=== PATIENT | male | born 1995 | race Two or more races ===

== ENCOUNTER 2025-03-03 11:02 | Outpatient (AMB) | payer OTHER, SELFPAY ==
--- NOTE | 2025-03-03 11:04 | A.OFFPC_ITS ---
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 Intake Note: New patient to establish care Automotive Designer Required: No Allergies No Known Allergies Allergy (Verified 03/03/25 11:14) Medication List - Last Reconciled 03/03/25 by RAE Valenzuela- omeprazole 10 mg PO DAILY Tobacco use date assessed: 03/03/25 Dental Screening Dental Screen Date: 03/03/25 Did you have a dental visit in the last 12 months?: Yes Did you have a dental problem in the last 6 months where you did not have access to dental care?: No Was dental information given to patient?: Patient has dentist HPI HPI Comments History of Present Illness Details 29 y/o M with GERD, ADHD, partial tear i n R common extensor 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 Health Maintenance Tdap declined Specialists: Physiatry tendonitis R elbow PT [facility] - vision issues at night; changes in vision, would like referral Here today to est care. Previous PCP: Dr Serrano, no records available, Skin: no issues or concerns - Past medical experiences include previ ously diagnosed GERD, managed with sparingly used omeprazole since experiencing improved symptom control. - He used Adderall briefly during a alicia od of academic need but has since ceased using it due to a lack of necessity. - Persistent elbow tendinitis led to an MRI, showing a partial tear in the common extensor tendon. He receives physical therapy and recently started peptide injections @ [facility] to avoid surgical intervention. - Experiencing mild symptoms in the neck and shoulder region possibly related to poor posture and aggravated by specific activities associated with gym workouts. - Previously endured a brief episode of ambiguous visceral pain, which resolved without needing continued investigation. Did have ED eval and tx for this. States no imaging done. - Background anxiety is a minor concern for the patient, with no treatment sought; it presents infrequently and is not debilitating. 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 - Exercise: Engages in gym activities re gularly - Lifestyle: Reports coordinated exercis es managed through physical therapy - Education: Returned to school for spec ific testing, at one point using Adderall for focus - Family Planning: Lives with a girlfrie nd, with whom he consults on health decisions - Social Support: Girlfriend?s father is a former physician providing informal health input Health Maintenance - Discussed and declined tetanus vaccina tion update; advised on accessibility at pharmacy if reconsidered - No recent labs, offered but deferred s creenings including diabetes, cholesterol, and liver screening - Referral to eye care for general visio n examination and cyst evaluation of upper eye lid on R - Encouraged to keep regular annual well ness visits Review of Systems - General: Denies surgery history except for dental procedures - Cardiovascular: Denies family history of diabetes - Gastrointestinal: Reports history of G ERD - Musculoskeletal: Reports elbow tendini tis, small partial tear in common extensor tendon, neck discomfort, numbness/tingling between shoulder blade and spine - Neurological: Denies history of severe neurologic events - Psychiatric: Reports history of mild a nxiety, denies depression - Respiratory: Denies respiratory issues - Skin: Denies any ongoing skin conditio ns - Visual: Reports slight vision problems at night, presence of a cyst - Genitourinary: Denies concerns regardi ng STDs, reports performing self- examinations Physical Exam General: Well developed, well nourished, in no acute distress. Appears stated age. Head: Normocephalic, atraumatic. Eyes: Pupils are equal, round and reactive to light and accommodation. Conjunctivae are clear. Vision grossly normal. Noted a small cyst on the inside of the right eyelid. Ears: TMs clear AU, EACS WNL Nose: Patent, without discharge. Neck: Supple, no adenopathy or thyromegaly. Unable to reproduce sx reported in HPI Breast: Edu on SBE Lungs: Clear to auscultation bilaterally. No rales, rhonchi or wheeze noted. Good air flow in all gray. Heart: Regular rate and rhythm. No murmurs, click, rubs or gallops are noted. Abdomen: Bowel sounds present in all quadrants. The abdomen is soft, nontender, with no masses or organomegaly noted. No hernias are noted. : Deferred. Reviewed BLAIR & recommendations Pulses: Peripheral pulses are equal and palpable bilaterally. Extremities: No clubbing, cyanosis nor edema is noted. Neurologic: Gait and station normal. Cranial Nerves 2-12 intact. Motor strength grossly symmetrical and intact. No sensory loss. Balance normal. Reports numbness and tingling between shoulder blade and spine when hunched over. Skin: No rashes, ulcers, or lesions noted. Turgor is good. Skin color is good. Hair and nails are without abnormalities. Psych: Normal eye contact, affect and mood appropriate, and normal interactions. Patient is alert and appropriate to context. Discussion Notes I engaged with the patient regarding his desire to establish care, emphasizing the significance of managing ongoing health concerns such as GERD and a partial elbow tendon tear. We reviewed his current treatment approach with on-demand omeprazole and new peptide injection therapy. I explained the potential benefits of continued physical therapy versus surgical options. In terms of health maintenance, we recommended obtaining a tetanus vaccine, readily available at local pharmacies, and detailed instructions for accessing the patient portal for streamlined communication. Additionally, I introduced the use of eye exams to investigate noted visual difficulties and a cyst in his eyelid. I advised him to annually attend wellness checks and consider lifestyle adjustments addressing anxiety. Lastly, I reaffirmed the need for quick accessibility to care through our walk-in services for situations requiring acute attention. Assessment and Plan 1. Gastroesophageal Reflux Disease (GERD ) The patient manages GERD symptoms using omeprazole on an as-needed basis. Continued monitoring and patient-led symptom management reduce the need for immediate change given effective current practices. 2. Partial tear of the common extensor t endon of the elbow Management of the elbow's tendon tear remains conservative, with the patient engaging in peptide therapy geared toward reducing inflammation. Regular physical therapy assists in maintaining function and strength, circumventing more invasive procedures. Patient Instructions - Use omeprazole as needed for GERD symp toms. - Continue physical therapy and peptide injections for elbow tendon management. - Keep up with exercises and stretches t o maintain posture for neck/shoulder discomfort. - Consider tetanus vaccination at a [facility] pharmacy if deemed necessary. - Visit the appointed eye doctor for a c heck-up. - Engage with the patient portal within 24 hours to activate it. - Return annually for wellness checks or sooner if conditions change. - Use our walk-in services in [facility] acute care is required. Consent Patient was informed and verbally consented to the use of an ambient scribe for clinic note documentation during this visit. An additional 30 minutes was spent addressing the problem(s) noted at todays visit. This includes time spent before the visit reviewing the chart, time spent during the visit, and time spent after the visit on documentation reviewing laboratory results, diagnostic imaging, medications, performing a medically necessary evaluation, counseling on diagnoses, care coordination, ordering appropriate tests, ordering appropriate medications, review of tests performed by other providers, reporting test results with the patient, communication with other healthcare providers. FORMERLY [facility], [facility] Social History (Updated 03/03/25 @ 11:[address]ados MA) Household Members: Significant Other and Other Household Members Other:: mother Both parents involved: No Caregiver staying overnight: No Housing: House Are you a primary career development coordinator to a significant other at home: No Do you presently have visiting nurse or other home services: No 75 years or older and lives alone: No Alcohol intake: current Alcohol intake frequency: a few times a week Patient Tobacco Use Status: Never used Tobacco e-Cigarette/Vaping Use: Never Used Second Hand Smoke Exposure: No service: No Current occupational status: employed 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 1. Little interest or pleasure in doing things: not at all 2. Feeling down, depressed, or hopeless: not at all 3. Trouble falling or staying asleep, or sleeping too much: not at all 4. Feeling tired or having little energy: not at all 5. Poor appetite or overeating: not at all 6. Feeling bad about yourself - or that you are a failure or have let yourself or your family down: not at all 7. Trouble concentrating on things, such as reading the newspaper or watching television: not at all 8. Moving or speaking so slowly that other people could have noticed. Or the opposite - being so fidgety or restless that you have been moving around a lot more than usual: not at all 9. Thoughts that you would be better off or of hurting yourself in some way: not at all Total score: 0 Depression Screening Interpretation: Negative Depression Screening Done: Yes 55732 - PHQ-9 Billing: Yes Source: Developed by Drs. Cong Hannah, Adam Rosa and colleagues, with an educational mavis from [facility]. Thrive Questionnaire Date Thrive assessed: 03/03/25 I am a: Patient What is your living situation today?: I have a steady place to live Within the past 12 months, did the food you bought not last and you didn't have the money to get more?: Never true Within the past 12 months, did you worry whether your food would run out before you got money to buy more?: Never true Do you have trouble paying for medicines?: No Do you have trouble getting transportation to medical appointments?: No Do you have trouble paying your heating and electricity bill?: No Do you have trouble taking care of your child, family member or friend?: No Do you have trouble with day-to-day activities such as bathing, preparing meals, shopping, managing finances, etc.?: No Are you currently unemployed and looking for a job?: No Are you interested in more education?: No Please select the resources that you would like help with: None Currently or been in a relationship where the following occur: No concerns reported THRIVE Score: 0 AUDIT C Alcohol Use Questionnaire (AUDIT-C) 1. How often do you have a drink containing alcohol?: 2-4 times a month 2. How many drinks containing alcohol do you have on a typical day when you are drinking?: 5 or 6 3. How often do you have six or more drinks on one occasion?: Weekly Total Score: 7 Score Reviewed/Action Taken: Yes ALMA-7 AMB Questionnaire ALMA-7 Date ALMA - 7 assessed: 03/03/25 Feeling nervous, anxious, or on edge: 1 = Several days Not being able to stop or control worryin = Several days Worrying too much about different things: 1 = Several days Trouble relaxin = Several days Being so restless that it is hard to sit still: 0 = Not at all Becoming easily annoyed or irritable: 0 = Not at all Feeling afraid as if something awful might happen: 0 = Not at all Total ALMA-7 score (0-4 normal; 5-9 mild; 10-14 moderate; 15-21 severe): 4 Source: Developed by Nayely Soriano Kurt Kroenke and colleagues, with an educational mavis from [facility]. ALMA-7 Assessment Billing ALMA-7 Assessment Tool: ALMA-7 Assessment 46525 Physical exam (Primary Care) Vital Signs: Last Vital Signs Temp 97.2 F 03/03/25 11:11 Pulse 66 03/03/25 11:11 Resp 12 03/03/25 11:11 BP 120/70 03/03/25 11:11 Pulse Ox 97 03/03/25 11:11 Oxygen Delivery Method Room Air 03/03/25 11:11 BMI result Body Mass Index 27.9 Tobacco/Smoking Status: Tobacco use Status Tobacco use date assessed 03/03/25 03/03/25 11:13 Patient Tobacco Use Status Never used Tobacco 03/03/25 11:13 e-Cigarette/Vaping Use Never Used 03/03/25 11:13 PHQ-9: PHQ-9 Score PHQ-9: Total score 0 03/03/25 11:13 Depression Screening Interpretation: Negative Thrive Assessment: Date of Thrive Assessment Date Thrive assessed 03/03/25 03/03/25 11:13 Currently or been in a relationship where the following occur: No concerns reported Coding Level of Care Code New Pt Level 3 (14757) New Pt Prev Care 18-39yr(02325 Diagnoses Encounter to establish care Z76.89 Gastroesophageal reflux disease without esophagitis K21.9 Esophagitis presence: without esophagitis Tetanus, diphtheria, and acellular pertussis (Tdap) vaccination declined Z28.21 Partial tear of common extensor tendon of elbow S56.519A Blurred vision H53.8 Cyst of right upper eyelid H02.821 Eyelid: upper History of ADHD Z86.59 Mild anxiety F41.9 Cervical radiculopathy M54.12 Encounter for general adult medical examination with abnormal findings Z00.01 Additional Codes ALMA-7 Assessment Billing - ALMA-7 Assessment Tool: ALMA-7 Assessment 66961 ([id number]) PHQ-9 - 05873 - PHQ-9 Billing: Yes ([id number]) Assessment & Plan Assessment & Plan (1) Encounter to establish care: Code(s): Z76.89 - Persons encountering health services in other specified circumstances (2) GERD (gastroesophageal reflux disease): Code(s): K21.9 - Gastro-esophageal reflux disease without esophagitis Category: Medical Qualifiers: Esophagitis presence: without esophagitis Qualified Code(s): K21.9 - Gastro-esophageal reflux disease without esophagitis (3) Tetanus, diphtheria, and acellular pertussis (Tdap) vaccination declined: Code(s): Z28.21 - Immunization not carried out because of patient refusal Category: Medical (4) Partial tear of common extensor tendon of elbow: Comment: Right Code(s): S56.519A - Strain of other extensor muscle, fascia and tendon at forearm level, unspecified arm, initial encounter Category: Medical (5) Blurred vision: Code(s): H53.8 - Other visual disturbances Category: Medical (6) Cyst of right eyelid: Code(s): H02.823 - Cysts of right eye, unspecified eyelid Category: Medical Qualifiers: Eyelid: upper Qualified Code(s): H02.821 - Cysts of right upper eyelid (7) History of ADHD: Code(s): Z86.59 - Personal history of other mental and behavioral disorders Category: Medical (8) Mild anxiety: Code(s): F41.9 - Anxiety disorder, unspecified Category: Medical (9) Cervical radiculopathy: Code(s): M54.12 - Radiculopathy, cervical region Category: Medical (10) Encounter for general adult medical examination with abnormal findings: Onset Date: ~02/2025 Code(s): Z00.01 - Encounter for general adult medical examination with abnormal findings Category: Medical Plan . Orders: Referrals Optometry Referral H53.8 - Other visual disturbances Patient Instructions: Health screenings for men You should visit your health care provider regularly, even if you feel healthy. The purpose of these visits is to: Screen for medical issues Assess your risk for future medical problems Encourage a healthy lifestyle Update vaccinations and other preventive care services Help you get to know your provider in case of an illness Information Even if you feel fine, you should still see your provider for regular checkups. These visits can help you avoid problems in the future. For example, the only way to find out if you have high blood pressure is to have it checked regularly. High blood sugar and high cholesterol level also may not have any symptoms in the early stages. Simple blood tests can check for these conditions. There are specific times when you should see your provider or receive specific health screenings. The [place] Preventive Services Task Force publishes a list of recommended screenings. Below are screening guidelines for men ages 40 to 64. BLOOD PRESSURE SCREENING Have your blood pressure checked at least once every year. Watch for blood pressure screenings in your area. Ask your provider if you can stop in to have your blood pressure checked. Ask your provider if you need your blood pressure checked more often if: You have diabetes, heart disease, kidney problems, or are overweight or have certain other health conditions You have a first-degree relative with high blood pressure You are Black Your blood pressure top number is from 120 to 129 mm Hg, or the bottom number is from 70 to 79 mm Hg If the top number is 130 mm Hg or greater or the bottom number is 80 mm Hg or greater, this is considered stage 1 hypertension. Schedule an appointment with your provider to learn how you can lower your blood pressure. Effects of age on blood pressure CHOLESTEROL SCREENING Cholesterol screening should begin at age 35 for men with no known risk factors for coronary heart disease. Repeat cholesterol screening should take place: Every 5 years for men with normal cholesterol levels More often if changes occur in lifestyle (including weight gain and diet) More often if you have diabetes, heart disease, kidney problems, or certain other conditions COLORECTAL CANCER SCREENING If you are under age 45, talk to your provider about getting screened. You may need to be screened if you have a strong family history of colon cancer or polyps. Screening may also be considered if you have risk factors such as a history of inflammatory bowel disease or polyps. If you are age 45 to 75, you should be screened for colorectal cancer. There are several screening tests available: A stool-based fecal occult blood (gFOBT) or fecal immunochemical test (FIT) every year A stool sDNA test every 1 to 3 years Flexible sigmoidoscopy every 5 years or every 10 years with stool testing FIT done every year CT colonography (virtual colonoscopy) every 5 years Colonoscopy every 10 years You may need a colonoscopy more often if you have risk factors for colorectal cancer, such as: Ulcerative colitis A personal or family history of colorectal cancer A history of growths in your colon called adenomatous polyps DENTAL EXAM Go to the dentist once or twice every year for an exam and cleaning. Your dentist will evaluate if you have a need for more frequent visits. DIABETES SCREENING All adults who do not have risk factors for diabetes should be screened starting at age 35 and repeated every 3 years. If you have other risk factors for diabetes, such as a first degree relative with diabetes, overweight or obesity, high blood pressure, prediabetes, or a history of heart disease, you may be tested more often. If you are overweight and have other risk factors, such as high blood pressure and are planning to become , screening is recommended. EYE EXAM Have an eye exam every 2 to 4 years ages 40 to 54 and every 1 to 3 years ages 55 to 64. Your provider may recommend more frequent eye exams if you have vision problems or glaucoma risk. Have an eye exam that includes an examination of your retina (back of your eye) at least every year if you have diabetes. IMMUNIZATIONS Commonly needed vaccines include: Flu shot: get one every year COVID-19 vaccine: ask your provider what is best for you Tetanus-diphtheria and acellular pertussis (Tdap) vaccine: have as one of your tetanus-diphtheria vaccines if you did not receive it as an adolescent Tetanus-diphtheria: have a booster (or Tdap) every 10 years Varicella vaccine: receive 2 doses if you never had chickenpox or the varicella vaccine and were born in 1979 or after Hepatitis B vaccine: receive 2, 3, or 4 doses, depending on your exact circumstances, if you did not receive these as a child or adolescent, until age 59 Shingles (herpes zoster) vaccine: at or after age 50 Ask your provider if you should receive other immunizations, especially if you have certain medical conditions, such as diabetes or are at increased risk for some diseases such as pneumonia. INFECTIOUS DISEASE SCREENING Screening for hepatitis C: all adults ages 18 to 79 should get a one-time test for hepatitis C. Screening for human immunodeficiency virus (HIV): all people ages 15 to 65 should get a one-time test for HIV. Depending on your lifestyle and medical history, you may need to be screened for infections such as syphilis, chlamydia, and other infections. LUNG CANCER SCREENING You should have an annual screening for lung cancer with low-dose computed tomography (LDCT) if: You are age 50 to 80 years AND You have a 20 pack-year smoking history AND You currently smoke or have quit within the past 15 years OSTEOPOROSIS SCREENING If you are age 50 to 64 and have risk factors for osteoporosis, you should discuss screening with your provider. Risk factors can include long-term steroid use, low body weight, smoking, heavy alcohol use, having a fracture after age 50, or a family history of hip fracture or osteoporosis. Osteoporosis PHYSICAL EXAM All adults should visit their provider from time to time, even if they are healthy. The purpose of these visits is to: Screen for diseases Assess risk of future medical problems Encourage a healthy lifestyle Update vaccinations and other preventive care services Maintain a relationship with a provider in case of an illness Your height, weight, and body mass index (BMI) should be checked at every exam. During your exam, your provider may ask you about: Depression and anxiety Diet and exercise Alcohol and tobacco use Safety, such as use of seat belts and smoke detectors Your medicines and risk for interactions PROSTATE CANCER SCREENING If you're 55 through 69 years old, before having the test, talk to your provider about the pros and cons of having a PSA test. Ask about: Whether screening decreases your chance of dying from prostate cancer. Whether there is any harm from prostate cancer screening, such as side effects from testing or overtreatment of cancer when discovered. Whether you have a higher risk of prostate cancer than others. If you are age 55 or younger, screening is not generally recommended. You should talk with your provider about if you have a higher risk for prostate cancer. Risk factors include: Having a family history of prostate cancer (especially a brother or father) Being If you choose to be tested, the PSA blood test is repeated over time (yearly or less often), though the best frequency is not known. Prostate examinations are no longer routinely done on men with no symptoms. Prostate cancer SKIN EXAM Your provider may check your skin for signs of skin cancer, especially if you're at high risk. People at high risk include those who have had skin cancer before, have close relatives with skin cancer, or have a weakened immune system. TESTICULAR EXAM The [place] Preventive Services Task Force (USPSTF) now recommends against performing testicular self-exams. Doing testicular self-exams has been shown to have little to no benefit. Walk-In Care (Urgent Care): [facility] Make it [facility] Walk-in for urgent medical issues such as: ? Seasonal Allergies ? Insect Bites ? Cough ? Diarrhea ? Acute Asthma Attacks ? Back, Knee or Joint Pain ? Ear Infection ? Fever without a Rash ? Headaches ? Nausea ? Brecon Eye, Rash or Skin Irritation ? Sore Throat ? Sports Physicals ? Vomiting Most insurances are accepted. Patients do not need to be part of the [facility] to seek care at the walk-in clinic. Locations [address] [place] [address] ? [phone] [facility] in [place] provides services to ages 18 and over. Open Monday-Monday: 8 a.m. to 5 p.m. and Monday: 9 a.m. to 3 p.m.* *Hours may vary due to staffing availability. To confirm Walk-In Care hours in [place], please call [phone]. [address] [place] [id number] ? [phone] [facility] [facility] in [place] provides services to ages 12 and over. Open Monday-Monday: 8 a.m. to 5 p.m. Hours may vary due to staffing availability. To confirm Walk-In Care hours in [place], please call [phone]. LABORATORY SERVICES: [facility] Lab ? Primary Location [address] [place] [address] Monday through Monday 6:00 AM ? 5:00 PM Monday 7:00 AM ? 11:00 AM* [phone] The [facility] Lab is centrally located near the front entrance of the [facility] for easy outpatient access. Convenient parking is provided for outpatients. *Hours may vary due to staffing availability. To confirm Laboratory hours for any location, please call [phone]. Offsite Location For your convenience, we offer offsite laboratory draw stations at the following locations: [address] [place] [address] ? [address], [address] Monday through Monday 7:30 AM ? 1:00 PM* [phone] *Hours may vary due to staffing availability. To confirm Laboratory hours for any location, please call [phone]. [place] ? [address] Monday through Monday 6:00 AM ? 3:30 PM* Monday 6:30 AM ? 3 PM* [phone] *Hours may vary due to staffing availability. To confirm Laboratory hours for any location, please call [phone] [place] [address] Monday through Monday 7:30 AM ? 4:00 PM* [phone] *Hours may vary due to staffing availability. To confirm Laboratory hours for any location, please call [phone] [place] [address] Monday through 9:00 AM ? 4:00 PM* *Hours may vary due to staffing availability. To confirm Laboratory hours for any location, please call [phone]. Appointments are not necessary. Walk-ins are welcome. Like all the departments throughout the [facility], our Lab undergoes frequent reviews to ensure the quality and accuracy of test results, and our staff takes special pride in its status as a nationally accredited facility. Patient Portal: ONE PATIENT. ONE RECORD. BETTER CARE. [facility] has a fully integrated, cutting- edge mobile electronic health information system that has revolutionized the way we care for our patients and manage our organization. This system improves communication and coordination enabling us to provide safe, higher-quality care, and an overall positive experience for staff and patients. Our first priority, as always, is to deliver the highest quality care possible. The system is running in the background supporting that priority. This portal is for all [facility] services and practices. If you are experiencing any technical difficulties with enrolling or logging into the Patient Portal please complete the [facility] Patient Portal Technical Support Form. [facility] now offers a new secure on-line interactive tool for patients to review their health information ? ?Patient Portal. This interactive web portal will enable patients and their families to take an active role in their care by providing easy, secure access to their health information via the internet. The Patient Portal provides patients with instant access to their health information, including laboratory results, medications, allergies, demographic information, visit history, and more. In addition to managing their own care, parents and health care proxies with authorized consent will appreciate the ability to access the records of those individuals for whom they provide care. Please note: if you wish to gain access (Proxy) to another patient?s portal, you will be required to come to the Medical Records Department in person at [facility]. Both the patient giving proxy access and the proxy will need to provide photo identification and complete the appropriate authorization. The Patient Portal also allows track their appointments online. The [facility] Patient Portal also saves patients time by allowing them to submit updates to their demographic and contact information prior to their visits. Portal email notifications will also alert patients to any new activity on their portal, such as test results and new appointments. In order to initially enroll in the [facility] Patient Portal, you will need to enter some required information including the following: * your [facility] Medical Record number * your personal home email address * name * date of Please note: In order to enroll in the [facility] Patient Portal, we need to have your email address on file in your electronic medical record. ?The email address needs to be specific for one person (yourself) in order for your Portal enrollment to be successful. ?You can update your email address in person with our Registration staff when you are registering for a hospital visit. ?Otherwise, you will need to come to the Health Information Management (Medical Records) Department at [facility]. ?We are open from Monday ? Monday from 7:30 a.m. ? 4:30 p.m. ?You will be required to present a photo id. Once you have successfully enrolled in the Patient Portal, you will receive a one-time user id and password for the Portal, sent to your email address. ?This will allow you to log into the Patient Portal within 99 hrs and reset your own logon id and password, and define personal security questions. ?Once your permanent login and password have been set, you can log into the [facility] Patient Por med at any time via the blue button above or from the Portal Logon button on any page of the [facility] website. [facility] and [facility] encourage all of our patients to enroll in Patient Portal as it presents a valuable opportunity for patients and their families to actively participate in their care and stay healthy Welcome to [facility]. ?We look forward to working with you.
[2025-03-03 11:11] VITALS: BP 120/70; PULSE 66; RESP 12; TEMP 36.2; O2SAT 97; BMI 27.9
--- OUTSIDE RECORDS SUMMARY | 2025-03-03 12:47 | XMS_ITS | Encounter Summary ---
Author Organization [facility] Address [address] [place] [phone] Phone Care Team Providers Care Soot Blower Name Role Phone Unavailable Primary Care Provider Unavailabl e Encounter Details Date Type Department Care Team (Late st Contact Info) Description 03/18/2018 [facility]counter [facility] [address] [address] Social History Tobacco Use Types Packs/Day Years Used Date Smoking Tobacco: Never Assessed Sex and Gender Information Value Date Recorded Sex Assigned at Not on file Legal Sex Male 6:28 PM EDT Gender Identity Not on file Sexual Orientation Not on file documented as of this encounter Plan of Treatment Not on file documented as of this encounter Visit Diagnoses Not on filedocumented in this encounter
--- OUTSIDE RECORDS SUMMARY | 2025-03-03 12:47 | XMS_ITS | Clinical Summary ---
Author Organization [facility] Address [address] [place] [address] Phone Care Team Providers Care Lighting Adviser Name Role Phone Unavailable Primary Care Provider Unavailabl e Immunizations Immunization Administration Dates Next Due DTaP 12/30/1999, 6,1995,10/02,1995 H1N1 09/17/2009 HPV, Quadrivalent 05/08/2014,03/06/2014 Hep B, ped/adol 02/29/1996,1995,1995 Hib (PRP-T) 09/10/1996, 6,1995,07/28 IPV 12/30/1999, 6,1995,07/28 Influenza, injectable, quadrivalent 11/09/2012 Influenza, injectable, quadr ivalent, preservative free 10/20/2009 MMR 12/30/1999,06/03/1996 Meningococcal Conj (Menactra) MCV4P 02/20/2012,0 02/07/2008 Tdap 08/28/2006 Varicella 02/07/2008,06/18/1996 Family History Relation Name Status Comments Father Alive healthy age: 51 Maternal Grandfather Alive strokes tobacco Maternal Grandmother hyperte nsion, hyperlipidemia, cancer dementia Mother Alive IBD osteopenia gastritis herniaed disc age: 51 Paternal Grandfather Alive pacemak er Paternal Grandmother cancer Social History Tobacco Use Types Packs/Day Years Used Date Smoking Tobacco: Never Assessed Sex and Gender Information Value Date Recorded Sex Assigned at Not on file Legal Sex Male 6:28 PM EDT Gender Identity Not on file Sexual Orientation Not on file Last Filed Vital Signs Vital Sign Reading Time Taken Comments Blood Pressure 122/66 03/06/2014 12:00 AM EDT Pulse - - Temperature 36.5 ??C (97.7 ??F) 11/12/2012 12:[address] Respiratory Rate - - Oxygen Saturation - - Inhaled Oxygen Concentration - - Weight 65.6 kg (144 lb 9.6 oz) 03/06/2014 12:00 AM EDT Height 174 cm (5' 8.5 ) 03/06/2014 12:00 AM EDT Body Mass Index 21.67 03/06/2014 12:00 AM EDT Plan of Treatment Health Maintenance Due Date Last Done Comments Varicella Vaccines (2 of 2 - 2-dose childhood series) 05/01/2008 02/07/2008, 06/18/1996 HPV Vaccines (3 - Male 3-dose series) 09/06/2014 05/08/2014, 03/06/2014 DTaP,Tdap,and Td Vaccines (7 - Td or Tdap) 08/28/2016 08/28/2006, 12/30/1999, 09/10/1996, Additional history exists Influenza Vaccines (#1) 2024 11/09/2012, 10/20 COVID-19 Vaccine ( season) 2024 Hepatitis B Vaccines Completed 02/29/1996, 1995, 1995 HIB Vaccines Completed 09/10/1996, 10/1995, 1995, Additional history exists IPV Vaccines Completed 12/30/1999, 10/1995, 1995, Additional history exists MMR Vaccines Completed 12/30/1999, 06/03/1996 Meningococcal Vaccine Completed 02/20/2012, 008 Hepatitis A Vaccines Aged Out No long er eligible based on patient's age to complete this topic Men B Vaccine Aged Out No longer elig ible based on patient's age to complete this topic Pneumococcal Vaccine Aged Out No long er eligible based on patient's age to complete this topic
== END 2025-03-03 11:41 | disposition home or self-care (01) ==
LOC: HO.HMCFM 11:03
PROVIDERS: PCP Nurse Practitioner Family; Visit Provider Nurse Practitioner Family
DX: Z00.01 Encounter for general adult medical examination with abnormal findings (principal); K21.9 Gastro-esophageal reflux disease without esophagitis; Z28.21 Immunization not carried out because of patient refusal; S56.519A Strain of other extensor muscle, fascia and tendon at forearm level, unspecified arm, initial encounter; H53.8 Other visual disturbances; Z76.89 Persons encountering health services in other specified circumstances; H02.821 Cysts of right upper eyelid; Z86.59 Personal history of other mental and behavioral disorders; F41.9 Anxiety disorder, unspecified; M54.12 Radiculopathy, cervical region

== ENCOUNTER → 2025-03-03 11:02 | Outpatient (BNVA) | payer OTHER, SELFPAY | PROVIDERS: PCP Nurse Practitioner Family; Visit Provider Nurse Practitioner Family | DX: Z76.89 Persons encountering health services in other specified circumstances (principal); Z00.01 Encounter for general adult medical examination with abnormal findings; K21.9 Gastro-esophageal reflux disease without esophagitis; S56.511A Strain of other extensor muscle, fascia and tendon at forearm level, right arm, initial encounter; H53.8 Other visual disturbances; H02.821 Cysts of right upper eyelid; F41.9 Anxiety disorder, unspecified; M54.12 Radiculopathy, cervical region; Z86.59 Personal history of other mental and behavioral disorders; Z28.21 Immunization not carried out because of patient refusal; X58.XXXA Exposure to other specified factors, initial encounter; Y93.9 Activity, unspecified; Y92.9 Unspecified place or not applicable; Y99.9 Unspecified external cause status | CPT/HCPCS: 96127 ==

== ENCOUNTER 2025-08-27 12:44 | Outpatient (AMB) | payer OTHER, SELFPAY ==
--- NOTE | 2025-08-27 12:55 | A.OFFPC_ITS ---
Vital Signs 08/27/25 12:59 Height 5 ft 7 in Weight 172 lb 6 oz BMI 27.0 BP 124/72 Blood Pressure Location Lt brachial Position Sitting Respiration 13 Pulse 75 Pulse Source Pulse Oximeter Temp 97.6 F Temp Source Oral Pulse Oximetry (%) 98 Oxygen Delivery Method Room Air Intake Visit Reasons: arm evaluated again Intake Note: Patient c/o right arm px x years but got worse last year and went to PT. patient states that is getting irritated again. 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 Health Maintenance Tdap declined Specialists: Management Instructor tendonitis R elbow PT [facility] - vision issues at night; changes in vision, would like referral History of Present Illness The patient is a 30-year-old male presenting for a follow-up visit for persistent right elbow pain. Right elbow pain: - The patient has a history of a partial tear of the right common extensor tendon, which was identified on a prior MRI. - He reports intermittent elbow pain sin ce 2015 which worsened after an incident at work involving heavy wires. - The pain is described as being located deep inside the elbow, felt with flexion, and is more prominent on the lateral aspect. - Previous treatments include physical t herapy, which resolved associated forearm pain but not the elbow pain, and a two-month course of peptide injections, which provided minimal benefit. - The patient expresses concern that silvia isabel for the tendon tear may not resolve his deep elbow pain. - The patient reports that repetitive mo tions from playing video games may have contributed to recent thumb and wrist soreness. Past Medical History - Partial tear of the right common exten sor tendon, confirmed by a prior MRI. Review of Systems - Musculoskeletal: Reports deep pain in the right elbow, which has been present since 2016 and is worse with flexion. Also reports recent right thumb and wrist soreness after playing video games. Denies weakness. - Neurological: Reports good sensation i n the right hand. Physical Exam General: Well developed, well nourished, in no acute distress. Appears stated age. Head: Normocephalic, atraumatic. Lungs: Speaking in full sentences Musculoskeletal: Joints are nontender, without swelling, redness, or effusions. Good strength noted in the arm. Full strength. Neurovasc intact; i am unable to replicate sx on exam today; He tell me the Pain is moreso on the lateral aspect of the elbow, particularly when flexing or twisting the arm & is felt deep within the elbow. Pulses: Peripheral pulses are equal and palpable bilaterally. Good sensation in the hand. Extremities: No clubbing, cyanosis nor edema is noted. Psych: Mood and affect appropriate. Results - Prior Imaging: A previous MRI of the r ight elbow showed a partial tear of the common extensor tendon. Medical Decision Making The patient is a 30-year-old male with chronic right elbow pain and a known partial tear of the common extensor tendon who has failed conservative management including physical therapy and peptide injections. The primary clinical question is to determine if his persistent, deep elbow pain is solely attributable to the known tendon tear or if there is another underlying pathology, such as olecranon bursitis or another intra-articular issue, especially given his expressed reluctance towards surgery that may not resolve his symptoms. Given the uncertainty and the failure of previous treatments, a repeat MRI of the right elbow with and without contrast is warranted. This will provide a more detailed assessment of the tendon, evaluate for inflammation or other structural abnormalities, and help guide subsequent management decisions. Although referral to a sports medicine surgeon was discussed, proceeding with imaging first aligns with the patient's desire to gather more information before considering more invasive options. A plan is in place to manage the logistics of the MRI order in light of the patient's impending insurance change. A telehealth follow-up will be scheduled to review the results and formulate a definitive treatment plan. Plan 1. Right Elbow Pain - An MRI of the right elbow with and wit hout contrast will be ordered to further evaluate the persistent pain and known tendon tear. - The order will be placed through [facility], and the patient will be advised to request a Monday appointment for his convenience. - The patient was advised to notify the front of house manager staff about his upcoming change in insurance to ensure the authorization process is handled appropriately before his current coverage terminates. - The patient was counseled that repetit louis motions, like those from video games, can exacerbate his symptoms and should be done with caution. - A telehealth appointment will be sched uled to review the MRI results and discuss the subsequent treatment plan. Patient Instructions - We have ordered an MRI of your right e lbow. You will receive a call from the imaging department at [facility] to schedule this. Please let them know you prefer a Monday appointment. - When you check out, please remind the front of house manager staff that your insurance will be changing soon. This is important so they can get the MRI approved before your current plan ends. - Be aware that repetitive activities, s uch as playing video games, can make your arm pain worse. - Once your MRI results are in, we will schedule a telehealth (video) appoi ntment to review them with you and decide on the next steps for treatment. Consent The plan to obtain a repeat MRI of the right elbow, both with and without contrast, was discussed with the patient. The patient understood that the purpose of the MRI is to gather more information about his elbow pain before deciding on further treatment, such as surgery. The patient verbally consented to proceeding with the MRI. Patient was informed and verbally consented to the use of an ambient scribe for clinic note documentation during this visit. Total time spent caring for the patient today was 30 minutes. This includes time spent before the visit reviewing the chart, time spent during the visit, and time spent after the visit on documentation, reviewing laboratory results, diagnostic imaging, medications, performing a medically necessary evaluation, counseling on diagnoses, care coordination, ordering appropriate tests, ordering appropriate medications, review of tests performed by other providers, reporting test results with the patient, communication with other healthcare providers. [facility] Medical History (Updated 08/27/25 @ 13:10 by TUNDE Valenzuela) Anxiety Asthma No pertinent family history Surgical History (Updated 03/03/25 @ 12:[address] MA) No pertinent past surgical history Social History (Updated 03/03/25 @ 12:[address] MA) Household Members: Significant Other and Other Household Members Other:: mother Both parents involved: No Caregiver staying overnight: No Housing: House Are you a primary respiratory care faculty to a significant other at home: No Do you presently have visiting nurse or other home services: No 75 years or older and lives alone: No Alcohol intake: current Alcohol intake frequency: a few times a week Patient Tobacco Use Status: Never used Tobacco e-Cigarette/Vaping Use: Never Used Second Hand Smoke Exposure: No Substance Use Type: Marijuana service: No Current occupational status: employed 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 1. Little interest or pleasure in doing things: not at all 2. Feeling down, depressed, or hopeless: not at all 3. Trouble falling or staying asleep, or sleeping too much: not at all 4. Feeling tired or having little energy: not at all 5. Poor appetite or overeating: not at all 6. Feeling bad about yourself - or that you are a failure or have let yourself or your family down: not at all 7. Trouble concentrating on things, such as reading the newspaper or watching television: not at all 8. Moving or speaking so slowly that other people could have noticed. Or the opposite - being so fidgety or restless that you have been moving around a lot more than usual: not at all 9. Thoughts that you would be better off or of hurting yourself in some way: not at all Total score: 0 Depression Screening Interpretation: Negative Depression Screening Done: Yes 08686 - PHQ-9 Billing: Yes Source: Developed by Drs. Cong Hannah, Nayely Amaral, Adam Camilo and colleagues, with an educational mavis from [employer]. Thrive Questionnaire Date Thrive assessed: 08/27/25 I am a: Patient What is your living situation today?: I have a steady place to live Within the past 12 months, did the food you bought not last and you didn't have the money to get more?: Never true Within the past 12 months, did you worry whether your food would run out before you got money to buy more?: Never true Do you have trouble paying for medicines?: No Do you have trouble getting transportation to medical appointments?: No Do you have trouble paying your heating and electricity bill?: No Do you have trouble taking care of your child, family member or friend?: No Do you have trouble with day-to-day activities such as bathing, preparing meals, shopping, managing finances, etc.?: No Are you currently unemployed and looking for a job?: No Are you interested in more education?: No Please select the resources that you would like help with: None Currently or been in a relationship where the following occur: No concerns reported THRIVE Score: 0 ALMA-7 AMB Questionnaire ALMA-7 Date ALMA - 7 assessed: 08/27/25 Feeling nervous, anxious, or on edge: 0 = Not at all Not being able to stop or control worryin = Not at all Worrying too much about different things: 0 = Not at all Trouble relaxin = Not at all Being so restless that it is hard to sit still: 0 = Not at all Becoming easily annoyed or irritable: 0 = Not at all Feeling afraid as if something awful might happen: 0 = Not at all Total ALMA-7 score (0-4 normal; 5-9 mild; 10-14 moderate; 15-21 severe): 0 Source: Developed by Drs. Cong Hannah, Nayely Amaral, Adam Camilo and colleagues, with an educational mavis from [employer]. ALMA-7 Assessment Billing ALMA-7 Assessment Tool: ALMA-7 Assessment 42524 Physical exam (Primary Care) Vital Signs: Last Vital Signs Temp 97.6 F 08/27/25 12:59 Pulse 75 08/27/25 12:59 Resp 13 08/27/25 12:59 BP 124/72 08/27/25 12:59 Pulse Ox 98 08/27/25 12:59 Oxygen Delivery Method Room Air 08/27/25 12:59 BMI result Body Mass Index 27.0 Tobacco/Smoking Status: Tobacco use Status Tobacco use date assessed 08/27/25 08/27/25 13:01 Patient Tobacco Use Status Never used Tobacco 08/27/25 13:01 e-Cigarette/Vaping Use Never Used 08/27/25 13:01 PHQ-9: PHQ-9 Score PHQ-9: Total score 0 08/27/25 13:06 Depression Screening Interpretation: Negative Thrive Assessment: Date of Thrive Assessment Date Thrive assessed 08/27/25 08/27/25 13:01 Currently or been in a relationship where the following occur: No concerns reported Coding Level of Care Code Est Pt Level 4 (06015) Complex EM visit Add On G2211 Diagnoses Partial tear of common extensor tendon of elbow S56.519A Right elbow pain M25.521 Additional Codes ALMA-7 Assessment Billing - ALMA-7 Assessment Tool: ALMA-7 Assessment 70251 ([id number]) PHQ-9 - 47209 - PHQ-9 Billing: Yes ([id number]) Assessment & Plan Assessment & Plan (1) Partial tear of common extensor tendon of elbow: Comment: Right Code(s): S56.519A - Strain of other extensor muscle, fascia and tendon at forearm level, unspecified arm, initial encounter Category: Medical (2) Right elbow pain: Code(s): M25.521 - Pain in right elbow Category: Medical Plan . Orders: Orders MR elbow RT wo/w con Today M25.521 - Pain in right elbow, S56.519A - Strain of other extensor muscle, fascia and tendon at forearm level, unspecified arm, initial encounter
[2025-08-27 12:59] VITALS: BP 124/72; PULSE 75; RESP 13; TEMP 36.4; O2SAT 98; BMI 27.0
--- OUTSIDE RECORDS SUMMARY | 2025-08-27 16:05 | XMS_ITS | Encounter Summary ---
Author Organization [facility] Address [address] [place] [address] Phone Care Team Providers Care Cashier Credit Name Role Phone Unavailable Primary Care Provider Unavailabl e Encounter Details Date Type Department Care Team (Late st Contact Info) Description 03/18/2018 Conversion Encounter [facility] [address] [address] Social History Tobacco Use Types Packs/Day Years [...]
--- OUTSIDE RECORDS SUMMARY | 2025-08-27 16:05 | XMS_ITS | Clinical Summary ---
Author Organization [facility] Address [address] [place] [phone] Phone Care Team Providers Care Shotweld Operator Name Role Phone Unavailable Primary Care Provider [...] AM EDT Pulse - - Temperature 36.5 C (97.7 F) 11/12/2012 12:00 AM EST Respiratory Rate - - Oxygen Saturation - [...] 09/10/1996, Additional history exists Influenza Vaccines (#1) 2025 11/09/2012, 10/20 COVID-19 Vaccine ( season) 2025 Hepatitis B Vaccines Completed 02/29/1996, 1995, 1995 [...]
== END 2025-08-27 13:18 | disposition home or self-care (01) ==
LOC: HO.HMCFM 12:45
PROVIDERS: PCP Nurse Practitioner Family; Visit Provider Nurse Practitioner Family
DX: S56.511A Strain of other extensor muscle, fascia and tendon at forearm level, right arm, initial encounter (principal); M25.521 Pain in right elbow

== ENCOUNTER → 2025-08-27 12:44 | Outpatient (BNVA) | payer OTHER, SELFPAY | PROVIDERS: PCP Nurse Practitioner Family; Visit Provider Nurse Practitioner Family | DX: M25.521 Pain in right elbow (principal); S56.511A Strain of other extensor muscle, fascia and tendon at forearm level, right arm, initial encounter; X58.XXXA Exposure to other specified factors, initial encounter; Y93.9 Activity, unspecified; Y92.9 Unspecified place or not applicable; Y99.9 Unspecified external cause status | CPT/HCPCS: 96127 ==